=== PATIENT | male | born 1940 | race Caucasian/White ===

== ENCOUNTER → 2016-10-16 | Outpatient (CLI) | payer MEDICARE, MEDICAID ==
[~2016-10-16] MED LIST: ABILIFY2 MG PO; ASPIRIN EC325 M1 PO; ATIVAN GENERIC0.5 MG PO; CELEXA 20MG TAB20 MG PO; CIPRO 500MG TA500 MG PO; CYMBALTA30 MG PO; DONEPEZIL 5MG TA5 MG PO; EFFEXOR 37.5M37.5 MG PO; GABAPENTIN 600600 MG PO; GABAPENTIN300 M2 PO; GEMFIBROZIL600 M1 PO; HUMALOG100 U/ML SC; HYDROCODONE-APA1 TA1 PO; IMDUR 30MG. TAB30 MG PO; K-DUR 20MEQ TA20 MEQ PO; KEPPRA 500 MG500 MG PO; KLONOPIN 0.5MG0.5 MG PO; LIPITOR20 MG PO; LISINOPRIL 10MG10 MG PO; LOPRESSOR50 MG PO; LORTAB 5/500 501 TAB PO; MAGNESIUM OXID400 M1 PO; METFORMIN1000 MG PO; METFORMIN500 MG PO; METOPROLOL 25 M25 MG PO; METOPROLOL50 MG PO; NITRO-DUR0.4 MG/HR SL; PLAVIX75 MG PO; PRAVASTATIN40 MG PO; PREDNISONE50 MG PO; RANEXA500 M1 PO; RANITIDINE HCL150 MG PO; REQUIP1 MG PO; SEROQUEL 100MG100 MG PO; SERTRALINE 50MG50 MG PO; STOOL SOFTENER240 MG PO; TRAMADOL 50MG T50 M1 PO; VITAMIN B1250 MCG PO; VITAMIN D31000 I1; VITAMIN D31000 IU PO; ZETIA10 MG
--- NOTE | 2016-10-16 14:55 | RADIOLOGY REPORT PS360 ---
MRI-BRAIN W/O Ordering Physician: Malik Lees MD Patient Age: 76 years: Male HISTORY: HEADACHE AROUND THE EYESheadache, then 2 months. Memory loss. TECHNIQUE: Noncontrast Multiplanar FLAIR, T1, T2 weighted images along with axial diffusion/ADC imaging performed on 1.5 T. Siemens, MRI. . Blood sensitive sequence also performed FINDINGS RIGHT temporal lobe region abnormalities primary finding and unchanged.: Stable Abnormal signal throughout right temporal lobe again evident reflecting old insult, and/or ischemia. This abnormal signal extends back to the junction of temporal lobe with parietal lobe as a did previously... Also Minimal signal just superior to the sylvian fissure again noted & stable Overall Similar pattern since August 2015 and January 2014. Atrophy here results in a more prominent right sylvian fissure, with more prominent right lateral ventricle-particularly right temporal horn Anterior tip LEFT temporal lobe also with slight increased signal from old injury or insult.-Unchanged. Mild focal atrophy here. Background of diffuse cerebral atrophy otherwise noted & most evident towards the superior left cerebral hemisphere towards left convexity. Prominent sulci in this superior left cerebral hemisphere but with no territorial infarct on left otherwise seen. But with the atrophy we would note prominent lateral ventricles bilaterally technique on right. Small area of more peripheral high signal/stable gliosis along the margin of the gyrus superior frontal lobe again noted and stable (: coronal image 8, axial 23, 22 ) . Minor additional feature . No contrast was used for today's study and may have been helpful to further investigate these features but since they're stable on this noncontrast study they can be followed. If follow-up MRI is performed with encourage with contrast technique for future MR study it performed. This could confirm stability of the subtle meningeal enhancement previously on January 2014 MRI exam. Prior 2013 observation was Nonspecific & although could reflect old trauma and old hemorrhage, other conditions can yield meningeal enhancement. I see no progressive nor gross meningeal thickening on today's study to otherwise require contrast nor to raise significant concern currently No mass lesions are evident on today's study. No subdural collection Posterior fossa appears stable. Unchanged. IACs and CP angles satisfactory. Cranial nerve VII and VIII unremarkable. Sella and pituitary normal size. Cranial cervical junction unremarkable. The visualized paranasal sinuses with no significant findings.. Orbits unremarkable. No retrobulbar pathology. Deviation nasal septum convexity to the left with engorgement right nasal turbinates again noted.. Mastoid air cells clear. No enlargement or discrete abnormalities at dural venous sinuses. IMPRESSION 1. Stable MRI of brain.. No new findings 2. 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 Unchanged -Small old area of injury/atrophy anterior tip of left temporal lobe. Unchanged -Diffuse cerebral atrophy 3. Also Re: Hx frontal Headaches:. Orbits unremarkable Paranasal sinuses clear .. .
== END ==
LOC: RAD 10-11 10:30
DX: R51 Headache (principal)